=== PATIENT | male | born 1980 | race Caucasian/White ===

== ENCOUNTER 2016-07-20 16:23 | Emergency (ER) | payer MEDICAID ==
[~2016-07-20] VITALS: Ht 185.4 cm; Wt 113.6 kg
[~2016-07-20 16:23] MED LIST: ANUSOL HC CREAM30 GM TP; BUSPIRONE; BUSPIRONE10 MG PO; HCTZ; HCTZ 25MG TAB25 MG PO; HCTZ 25MG25 MG PO; HYDROXYZINE10 M1 PO; LORTAB 5/500 501 TAB PO; NATURE'S BLEND100 M2 PO; NO HOME MEDICATIONS; PREVACID 15MG15 MG PO; PREVACID 30MG30 M1 PO; PREVACID 30MG30 MG PO; PREVACID SOLUTA30 M2 PO; PRILOSEC 20MG20 MG PO; SEPTRA DS 8001 TAB PO; TESSALON PERLE100 MG PO; TUSS PO; VALIUM 2MG T2 MG/TAB PO; VALIUM 5MG T5 MG/TAB PO; ZESTRIL 20MG TA20 MG PO; ZITHROMAX Z PA250 MG PO; [UNRECOGNIZED DRUG - OTHER] TP
[2016-07-20 16:30] VITALS: BP 159/102; PULSE 100; TEMP 99
[2016-07-20] MEDS ORDERED: BACTRIM DS 8001 TAB PO (17:42)
[2016-07-20] MEDS ORDERED: NYSTATIN POWDER15 GM TOP (17:43)
== END 2016-07-20 18:04 | disposition home or self-care (01) ==
LOC: COL.ER 16:23
DX: J20.9 Acute bronchitis, unspecified (principal); F17.210 Nicotine dependence, cigarettes, uncomplicated; B35.6 Tinea cruris; R21 Rash and other nonspecific skin eruption; N50.812 Left testicular pain; N50.811 Right testicular pain; K14.6 Glossodynia; I10 Essential (primary) hypertension